=== PATIENT | male | born 1975 | race African-American/Black ===

== ENCOUNTER 2019-08-22 09:00 | Inpatient (IN) ==
[2019-08-25] MEDS ORDERED: GLUCAGON 1 MG VIAL IM PRN (08:37)
[2019-08-25] MEDS ORDERED: DEXTROSE 50% 25 GM/50 ML VIAL IV PRN (08:37)
[2019-08-25] MEDS ORDERED: CLORAZEPATE 3.75 MG TABLET PO PRN (09:34)
[2019-08-25] MEDS ORDERED: hydrALAZINE 20 MG/1 ML VIAL IV PRN (09:36)
[2019-08-25 09:44] LABS: Basophils # 0.1 10*3/uL (0.0-0.2); Basophils % 1.5 % (0.0-0.8); Eosinophils # 0.3 10*3/uL (0.0-0.87); Eosinophils % 4.5 % (0.00-10.9); Hematocrit 48.6 VOL% (42.0-52.0); Hemoglobin 16.6 GM/DL (14.0-18.0); Immature Granulocytes % 0.1 %; Immature Granulocytes Absolute 0.01 #; Lymphocytes # 2.8 10*3/uL (1.4-4.0); Lymphocytes % 36.9 % (21.2-54.2); Mean Corpuscular HGB Conc 34.2 GM/DL (32-36); Mean Corpuscular Volume 94.6 FL (87-102); Mean Platelet Volume 9.9 FL (9.6-12.0); Monocytes % 11.4 % (1.7-12.7); Neutrophils % 45.6 % (38.7-73.9); Platelet Count 201 T/CUMM (130-400); Red Blood Count 5.14 MC/CUMM (3.8-5.5); Red Cell Distribution Width 13.5 % (9.3-17.3); White Blood Count 7.5 T/CUMM (4-12)
[2019-08-25 10:00] LABS: Albumin 3.7 G/DL (3.4-5.0); Bilirubin,Total 0.8 MG/DL (0.2-1.0); Calcium 8.9 MG/DL (8.5-10.1); Osmolality,Calculated 274.8 MOS/KG (273-304); Total Protein 7.7 G/DL (6.4-8.3)
[2019-08-25 10:01] LABS: ABG Base Excess -1.6 MMOL/L (-2.5-2.5); ABG HCO3 21.8 MMOL/L (20-26); ABG Oxygen Saturation 96.6 % (95-100); ABG PCO2 33.5 MM HG (35-48); ABG PH 7.431 (7.35-7.45); ABG PO2 84.9 MM HG (80-95); ABG TCO2 22.8 MMOL/L (23-27); Pt O2 Delivery Device Room Air
[2019-08-25] MEDS: CHLORHEXIDINE 0.12% ORAL RINSE 60 ML BOTTLE SWISH/SPIT SCH ×2 (14:38→21:12)
[2019-08-25] MEDS: CHLORHEXIDINE 4% SOLN 118 ML BOTTLE TOP SCH ×3 (15:18→21:11)
[2019-08-25] MEDS ORDERED: NICOTINE 21 MG/24 HR PATCH TRANSDERM ONE (16:45)
[2019-08-26] MEDS ORDERED: PAPAVERINE 60 MG/2 ML VIAL ONE (04:25)
[2019-08-26] MEDS ORDERED: VANCOMYCIN 500 MG VIAL ONE (04:25)
[2019-08-26] MEDS ORDERED: VANCOMYCIN 1,000 MG VIAL ONE (04:26)
[2019-08-26] MEDS ORDERED: ALBUTEROL/IPRATROPIUM 3 ML NEB RESP TX ONE (05:30)
[2019-08-26] MEDS: CHLORHEXIDINE 0.12% ORAL RINSE 60 ML BOTTLE SWISH/SPIT SCH ×2 (05:31→20:22)
[2019-08-26] MEDS ORDERED: MIDAZOLAM 10 MG/2 ML VIAL ONE (05:53)
[2019-08-26] MEDS ORDERED: SUFentanil 250 MCG/5 ML AMP ONE ×2 (05:53→10:28)
[2019-08-26] MEDS ORDERED: FAMOTIDINE 20 MG TABLET PO ONE (06:00)
[2019-08-26] MEDS ORDERED: LORazepam 1 MG TABLET PO ONE (06:00)
[2019-08-26] MEDS ORDERED: CEFUROXIME INJ 1,500 MG in SYRINGE 1 EACH IV ONE (07:00)
[2019-08-26 07:33] LABS: ABG Base Excess -1.6 MMOL/L (-2.5-2.5); ABG HCO3 21.7 MMOL/L (20-26); ABG Oxygen Saturation 98.4 % (95-100); ABG PCO2 33.1 MM HG (35-48); ABG PH 7.435 (7.35-7.45); ABG PO2 131.8 MM HG (80-95); ABG TCO2 22.7 MMOL/L (23-27); Glucose Heart Surgery 104 MG/DL (74-106); Hemoglobin Heart Surgery 15.5 G/DL (14.0-18.0); Ionized Calcium Arterial 1.16 MMOL/L (1.21-1.46); PCO2 Patient Temp Arterial 33.1 MMHG; PH Patient Temp Arterial 7.435; PO2 Patient Temp Arterial 131.8 MM HG; Patient Temperature 37 CELCIUS; Potassium Heart/CVR 3.6 MMOL/L (3.5-5.1); Sodium Heart/CVR 137 MMOL/L (135-145)
[2019-08-26] MEDS ORDERED: PHENYLEPHRINE DRIP 40 MG/250 ML PREMIX IV ONE (07:44)
[2019-08-26 07:56] LABS: Apearance,Urine CLEAR (Clear); Bacteria,Urine Occasional /HPF (Few); Bilirubin,Urine Negative (Negative); Blood, Urine Small mg/dL (Negative); Glucose,Urine (UA) Negative (Negative); Ketones,Urine Negative (Negative); Mucus,Urine Moderate /LPF (Occasional); Nitrite,Urine Negative (Negative); Protein,Urine Negative; RBC,Urine 1 /HPF (0-4); Urine Color Yellow (Yellow); Urine Specific Gravity 1.023 (1.001-1.035); Urine Urobilinogen < 2.0 EU/DL (0.2-1.0); WBC,Urine <1 /HPF (0-6)
[2019-08-26] MEDS ORDERED: HEPARIN/NACL 0.9% 2 UNITS/ML 500 ML IV ONE (09:07)
[2019-08-26] MEDS ORDERED: PHENYLEPHRINE DRIP 20 MG/250 ML PREMIX IV ONE (09:07)
[2019-08-26] MEDS ORDERED: NITROGLYCERIN DRIP 50 MG/250 ML BOTTLE IV ONE (09:07)
[2019-08-26] MEDS ORDERED: AMINOCAPROIC ACID 5,000 MG/20 ML VIAL ONE (09:08)
[2019-08-26 09:16] LABS: Hemoglobin Heart Surgery 11.2 G/DL (14.0-18.0); Potassium Heart/CVR 4.3 MMOL/L (3.5-5.1); VBG Base Excess -1.1 MEQ/L (0-4); VBG HCO3 22.9 MEQ/L (24-28); VBG Oxygen Saturation 87.2 %; VBG PCO2 35.4 MMHG (41-51); VBG PH 7.428; VBG PO2 52.2 MMHG (17-40)
[2019-08-26 09:17] LABS: PH Patient Temp Venous 7.473; PO2 Patient Temp Venous 42.3 MM HG
[2019-08-26 09:44] LABS: Hemoglobin Heart Surgery 11.7 G/DL (14.0-18.0); PCO2 Patient Temp Venous 33.3 MM HG; PH Patient Temp Venous 7.481; Potassium Heart/CVR 4.6 MMOL/L (3.5-5.1); VBG Base Excess 1.8 MEQ/L (0-4); VBG HCO3 25.8 MEQ/L (24-28); VBG Oxygen Saturation 89.4 %; VBG PCO2 40.4 MMHG (41-51); VBG PH 7.422; VBG PO2 55.1 MMHG (17-40)
[2019-08-26 10:20] LABS: Hematocrit Heart Surgery 37.4 PERCENT (42-52); Hemoglobin Heart Surgery 12.1 G/DL (14.0-18.0); PCO2 Patient Temp Venous 31.9 MM HG; PH Patient Temp Venous 7.478; PO2 Patient Temp Venous 38.4 MM HG; Potassium Heart/CVR 5.4 MMOL/L (3.5-5.1); VBG Base Excess 0.7 MEQ/L (0-4); VBG HCO3 24.8 MEQ/L (24-28); VBG PCO2 36.9 MMHG (41-51); VBG PH 7.434; VBG PO2 47.3 MMHG (17-40)
[2019-08-26 10:44] LABS: Hematocrit Heart Surgery 35.9 PERCENT (42-52); Hemoglobin Heart Surgery 11.7 G/DL (14.0-18.0); PCO2 Patient Temp Venous 39.8 MM HG; PH Patient Temp Venous 7.402; PO2 Patient Temp Venous 43.8 MM HG; Potassium Heart/CVR 5.1 MMOL/L (3.5-5.1); VBG Base Excess 0.1 MEQ/L (0-4); VBG HCO3 24.1 MEQ/L (24-28); VBG Oxygen Saturation 79.6 %; VBG PCO2 39.8 MMHG (41-51); VBG PH 7.402; VBG PO2 43.8 MMHG (17-40)
[2019-08-26] MEDS ORDERED: THROMBIN TOPICAL (RECOMBINANT) 5,000 UNIT VIAL TOP ONE (10:55)
[2019-08-26] MEDS ORDERED: ALBUTEROL 2.5 MG/3 ML NEB RESP TX ONE (11:01)
[2019-08-26 11:23] LABS: ABG Base Excess -1.4 MMOL/L (-2.5-2.5); ABG HCO3 23.3 MMOL/L (20-26); ABG Oxygen Saturation 99.3 % (95-100); ABG PCO2 37.9 MM HG (35-48); ABG PH 7.394 (7.35-7.45); ABG TCO2 20.5 MMOL/L (23-27); Glucose Heart Surgery 177 MG/DL (74-106); Hematocrit Heart Surgery 37.2 PERCENT (42-52); Hemoglobin Heart Surgery 12.1 G/DL (14.0-18.0); Ionized Calcium Arterial 1.25 MMOL/L (1.21-1.46); PCO2 Patient Temp Arterial 37.9 MMHG; PH Patient Temp Arterial 7.394; Patient Temperature 37 CELCIUS; Potassium Heart/CVR 3.8 MMOL/L (3.5-5.1); Sodium Heart/CVR 137 MMOL/L (135-145)
[2019-08-26] MEDS ORDERED: HEPARIN 10,000 UNIT/10 ML VIAL ONE ×2 (11:23→12:56)
[2019-08-26] MEDS ORDERED: MANNITOL 100 GM/500 ML BAG IV ONE (11:23)
[2019-08-26] MEDS ORDERED: DEXTROSE 5% KCL 20 MEQ 20 MEQ/1,000 ML BAG IV ONE (11:23)
[2019-08-26] MEDS ORDERED: ALBUMIN 5% 12.5 GM/250 ML VIAL IV ONE (11:23)
[2019-08-26] MEDS ORDERED: FUROSEMIDE 20 MG/2 ML VIAL ONE (11:23)
[2019-08-26] MEDS ORDERED: LIDOCAINE 2% 5 ML VIAL ONE ×2 (11:23→12:55)
[2019-08-26] MEDS ORDERED: ALBUMIN 25% 25 GM/100 ML VIAL IV ONE (11:23)
[2019-08-26] MEDS ORDERED: MAGNESIUM SULFATE 5 GM/10 ML VIAL IV ONE (11:23)
[2019-08-26] MEDS ORDERED: methylPREDNISolone SOD SUC 1,000 MG/8 ML VIAL ONE (11:23)
[2019-08-26] MEDS ORDERED: PROTAMINE SULFATE 250 MG/25 ML VIAL IV ONE (11:23)
[2019-08-26] MEDS ORDERED: SODIUM BICARBONATE 50 MEQ/50 ML VIAL IV ONE (11:23)
[2019-08-26] MEDS ORDERED: PROTAMINE SULFATE 50 MG/5 ML VIAL IV ONE (11:24)
[2019-08-26] MEDS ORDERED: MAGNESIUM SULF RIDER 4 GM in PREMIX 1 EACH IV PRN (12:11)
[2019-08-26] MEDS ORDERED: MAGNESIUM SULF RIDER 2 GM in PREMIX 1 EACH IV PRN (12:11)
[2019-08-26] MEDS ORDERED: ACETAMINOPHEN 650 MG SUPP RECTAL PRN (12:11)
[2019-08-26] MEDS ORDERED: DEXTROSE 10% 250 ML BAG IV PRN ×2 (12:11)
[2019-08-26] MEDS ORDERED: LACTATED RINGERS 250 ML IV PRN (12:11)
[2019-08-26] MEDS ORDERED: ONDANSETRON 4 MG/2 ML VIAL IV PRN (12:11)
[2019-08-26] MEDS ORDERED: INSULIN REGULAR 100 UNIT/ML IV PRN (12:11)
[2019-08-26] MEDS ORDERED: PHENYLEPHRINE DRIP 40 MG/250 ML PREMIX IV PRN (12:11)
[2019-08-26] MEDS ORDERED: CALCIUM CHLORIDE 1,000 MG/10 ML SYRINGE IV PRN (12:11)
[2019-08-26] MEDS ORDERED: CHLORHEXIDINE 4% SOLN 118 ML BOTTLE TOP PRN (12:11)
[2019-08-26] MEDS ORDERED: INSULIN REGULAR DRIP 100 ML IV SCH (12:11)
[2019-08-26] MEDS ORDERED: VECURONIUM 10 MG VIAL IV PRN ×2 (12:11)
[2019-08-26] MEDS ORDERED: MIDAZOLAM 10 MG/2 ML VIAL IV PRN (12:11)
[2019-08-26] MEDS ORDERED: MIDAZOLAM 2 MG/2 ML VIAL IV PRN (12:11)
[2019-08-26] MEDS ORDERED: NITROPRUSSIDE 100 MG in DEXTROSE 5% 250 ML IV PRN (12:11)
[2019-08-26] MEDS ORDERED: INSULIN REGULAR 100 UNIT/ML IV ONE (12:11)
[2019-08-26 12:45] LABS: ABG Base Excess -0.4 MMOL/L (-2.5-2.5); ABG HCO3 23.9 MMOL/L (20-26); ABG Oxygen Saturation 89.9 % (95-100); ABG PCO2 44.9 MM HG (35-48); ABG PO2 61.2 MM HG (80-95); ABG TCO2 22.3 MMOL/L (23-27); Glucose Heart Surgery 165 MG/DL (74-106); Hematocrit Heart Surgery 40.5 PERCENT (42-52); Hemoglobin Heart Surgery 13.2 G/DL (14.0-18.0); Potassium Heart/CVR 3.5 MMOL/L (3.5-5.1)
[2019-08-26 12:49] LABS: Basophils % 0.3 % (0.0-0.8); Eosinophils # 0.1 10*3/uL (0.0-0.87); Eosinophils % 0.7 % (0.00-10.9); Hematocrit 36.9 VOL% (42.0-52.0); Hemoglobin 12.9 GM/DL (14.0-18.0); Immature Granulocytes % 0.3 %; Immature Granulocytes Absolute 0.03 #; Lymphocytes # 1.5 10*3/uL (1.4-4.0); Lymphocytes % 16.3 % (21.2-54.2); Mean Corpuscular Volume 93.9 FL (87-102); Mean Platelet Volume 10.2 FL (9.6-12.0); Monocytes % 5.3 % (1.7-12.7); Neutrophils % 77.1 % (38.7-73.9); Platelet Count 126 T/CUMM (130-400); Red Blood Count 3.93 MC/CUMM (3.8-5.5); Red Cell Distribution Width 13.8 % (9.3-17.3)
[2019-08-26] MEDS: SODIUM CHLORIDE 0.45% 1,000 ML IV SCH ×2 (12:54)
[2019-08-26] MEDS: POTASSIUM CHLORIDE RIDER 20 MEQ in PREMIX 1 EACH IV PRN ×4 (12:55→23:36)
[2019-08-26] MEDS ORDERED: ETOMIDATE 40 MG/20 ML VIAL IV ONE (12:56)
[2019-08-26] MEDS ORDERED: CALCIUM CHLORIDE 1,000 MG/10 ML VIAL IV ONE (12:56)
[2019-08-26] MEDS ORDERED: VECURONIUM 10 MG VIAL IV ONE (12:56)
[2019-08-26] MEDS ORDERED: SODIUM CHLORIDE 0.9% 250 ML IV ONE (12:56)
[2019-08-26] MEDS ORDERED: LACTATED RINGERS 1,000 ML IV ONE (12:56)
[2019-08-26] MEDS ORDERED: MINERAL OIL/PETROLATUM OPH OINT 3.5 GM TUBE ONE (12:56)
[2019-08-26] MEDS ORDERED: SEVOFLURANE 1 UNIT/15 MINUTE INH ONE (12:56)
[2019-08-26] MEDS ORDERED: SODIUM CHLORIDE 0.9% 200 ML IV ONE (12:56)
[2019-08-26] MEDS ORDERED: SODIUM CHLORIDE 0.9% 1,000 ML IV ONE (12:56)
[2019-08-26 12:59] LABS: INR 1.1; PT Patient Result 11.8 SECS (9.6-12.2); Partial Thromboplastin Time 25.5 SECS (20.8-36.0)
[2019-08-26] MEDS: LACTATED RINGERS 1,000 ML IV PRN ×2 (13:00→14:01)
[2019-08-26 13:24] LABS: Albumin 3.1 G/DL (3.4-5.0); Calcium 8.1 MG/DL (8.5-10.1); Total Protein 5.9 G/DL (6.4-8.3)
[2019-08-26 13:25] LABS: Troponin I 7.29 NG/ML (0.00-0.045)
[2019-08-26] MEDS: POTASSIUM CHLORIDE RIDER 10 MEQ in PREMIX 1 EACH IV PRN ×2 (13:29→15:26)
[2019-08-26 14:34] LABS: ABG Base Excess -0.9 MMOL/L (-2.5-2.5); ABG HCO3 23.8 MMOL/L (20-26); ABG Oxygen Saturation 94.8 % (95-100); ABG PH 7.393 (7.35-7.45); ABG PO2 79.3 MM HG (80-95); ABG TCO2 25.1 MMOL/L (23-27); Glucose Heart Surgery 121 MG/DL (74-106); Hemoglobin Heart Surgery 13.2 G/DL (14.0-18.0); Potassium Heart/CVR 3.9 MMOL/L (3.5-5.1)
[2019-08-26 15:27] LABS: ABG Base Excess -0.7 MMOL/L (-2.5-2.5); ABG HCO3 23.8 MMOL/L (20-26); ABG Oxygen Saturation 95.9 % (95-100); ABG PCO2 40.9 MM HG (35-48); ABG PH 7.382 (7.35-7.45); ABG PO2 82.1 MM HG (80-95); ABG TCO2 21.4 MMOL/L (23-27); Glucose Heart Surgery 115 MG/DL (74-106); Hematocrit Heart Surgery 39.6 PERCENT (42-52); Hemoglobin Heart Surgery 12.9 G/DL (14.0-18.0); Potassium Heart/CVR 4.1 MMOL/L (3.5-5.1)
[2019-08-26] MEDS: ALBUMIN 5% 12.5 GM in PREMIX 1 EACH IV PRN ×2 (17:37→18:00)
[2019-08-26 18:47] LABS: ABG Base Excess -1.6 MMOL/L (-2.5-2.5); ABG Oxygen Saturation 95.1 % (95-100); ABG PH 7.405 (7.35-7.45); ABG PO2 74.5 MM HG (80-95); ABG TCO2 19.8 MMOL/L (23-27); Glucose Heart Surgery 164 MG/DL (74-106); Hematocrit Heart Surgery 39.3 PERCENT (42-52); Hemoglobin Heart Surgery 12.8 G/DL (14.0-18.0); Potassium Heart/CVR 4.3 MMOL/L (3.5-5.1)
[2019-08-26 20:09] LABS: ABG Base Excess -1.1 MMOL/L (-2.5-2.5); ABG HCO3 23.4 MMOL/L (20-26); ABG Oxygen Saturation 92.8 % (95-100); ABG PCO2 36.4 MM HG (35-48); ABG PO2 64.4 MM HG (80-95); ABG TCO2 20.4 MMOL/L (23-27); Glucose Heart Surgery 156 MG/DL (74-106); Hematocrit Heart Surgery 38.1 PERCENT (42-52); Hemoglobin Heart Surgery 12.4 G/DL (14.0-18.0); Potassium Heart/CVR 4.4 MMOL/L (3.5-5.1)
[2019-08-26] MEDS: CEFUROXIME INJ 1,500 MG in SYRINGE 1 EACH IV SCH (20:14)
[2019-08-26] MEDS: SODIUM CHLORIDE 0.9% 1,000 ML IV SCH (20:21)
[2019-08-26 21:15] LABS: ABG Base Excess -1.4 MMOL/L (-2.5-2.5); ABG HCO3 23.1 MMOL/L (20-26); ABG Oxygen Saturation 91.8 % (95-100); ABG PCO2 34.4 MM HG (35-48); ABG PH 7.421 (7.35-7.45); ABG PO2 60.8 MM HG (80-95); ABG TCO2 19.6 MMOL/L (23-27); Glucose Heart Surgery 166 MG/DL (74-106); Hematocrit Heart Surgery 39.3 PERCENT (42-52); Hemoglobin Heart Surgery 12.8 G/DL (14.0-18.0); Potassium Heart/CVR 4.1 MMOL/L (3.5-5.1)
[2019-08-26] MEDS ORDERED: FUROSEMIDE 40 MG/4 ML VIAL IV PRN (21:24)
[2019-08-26] MEDS: MORPHINE 4 MG/1 ML VIAL IV PRN (22:30)
[2019-08-26] MEDS: MORPHINE 10 MG/1 ML VIAL IV PRN (23:08)
[2019-08-26 23:17] LABS: ABG Base Excess -0.1 MMOL/L (-2.5-2.5); ABG HCO3 24.2 MMOL/L (20-26); ABG Oxygen Saturation 90.7 % (95-100); ABG PCO2 34.4 MM HG (35-48); ABG PH 7.441 (7.35-7.45); ABG PO2 57.2 MM HG (80-95); ABG TCO2 20.4 MMOL/L (23-27); Glucose Heart Surgery 162 MG/DL (74-106); Hematocrit Heart Surgery 40.3 PERCENT (42-52); Hemoglobin Heart Surgery 13.1 G/DL (14.0-18.0); Potassium Heart/CVR 4.2 MMOL/L (3.5-5.1)
[2019-08-26] MEDS: ALBUTEROL/IPRATROPIUM 3 ML NEB RESP TX SCH (23:31)
[2019-08-27] MEDS: MORPHINE 10 MG/1 ML VIAL IV PRN ×3 (02:13→07:39)
[2019-08-27] MEDS: ALBUTEROL/IPRATROPIUM 3 ML NEB RESP TX SCH ×6 (03:33→23:20)
[2019-08-27 04:00] LABS: ABG HCO3 25.2 MMOL/L (20-26); ABG Oxygen Saturation 89.5 % (95-100); ABG PH 7.445 (7.35-7.45); ABG PO2 54.7 MM HG (80-95); ABG TCO2 21.7 MMOL/L (23-27); Glucose Heart Surgery 146 MG/DL (74-106); Hematocrit Heart Surgery 39.1 PERCENT (42-52); Hemoglobin Heart Surgery 12.7 G/DL (14.0-18.0)
[2019-08-27 04:13] LABS: Basophils % 0.2 % (0.0-0.8); Eosinophils % 0.1 % (0.00-10.9); Hematocrit 36.2 VOL% (42.0-52.0); Hemoglobin 12.5 GM/DL (14.0-18.0); Immature Granulocytes % 0.5 %; Immature Granulocytes Absolute 0.08 #; Lymphocytes # 0.8 10*3/uL (1.4-4.0); Lymphocytes % 5.6 % (21.2-54.2); Mean Corpuscular HGB Conc 34.5 GM/DL (32-36); Mean Platelet Volume 10.1 FL (9.6-12.0); Monocytes % 7.2 % (1.7-12.7); Neutrophils % 86.4 % (38.7-73.9); Platelet Count 158 T/CUMM (130-400); Red Blood Count 3.81 MC/CUMM (3.8-5.5); Red Cell Distribution Width 14.3 % (9.3-17.3)
[2019-08-27] MEDS: POTASSIUM CHLORIDE RIDER 20 MEQ in PREMIX 1 EACH IV PRN (04:32)
[2019-08-27 04:41] LABS: Albumin 3.7 G/DL (3.4-5.0); Bilirubin,Direct 0.25 MG/DL (0.0-0.20); Bilirubin,Total 1.8 MG/DL (0.2-1.0); CKMB % 1.7 %; Calcium 8.4 MG/DL (8.5-10.1); Osmolality,Calculated 285.1 MOS/KG (273-304); Total Protein 6.1 G/DL (6.4-8.3)
[2019-08-27 04:55] LABS: Troponin I 10.7 NG/ML (0.00-0.045)
[2019-08-27] MEDS: CEFUROXIME INJ 1,500 MG in SYRINGE 1 EACH IV SCH ×2 (07:46→20:12)
[2019-08-27] MEDS: INSULIN REGULAR 100 UNIT/ML SUBCUT SCH ×5 (07:46→23:24)
[2019-08-27] MEDS: CHLORHEXIDINE 0.12% ORAL RINSE 60 ML BOTTLE SWISH/SPIT SCH ×2 (08:05→20:14)
[2019-08-27 13:11] LABS: CKMB % 1.1 %
[2019-08-27 13:12] LABS: Troponin I 7.1 NG/ML (0.00-0.045)
[2019-08-27] MEDS: SODIUM CHLORIDE 0.45% 1,000 ML IV SCH ×2 (14:08)
[2019-08-27] MEDS ORDERED: oxyCODONE/ACETAMINOPHEN 5-325 MG TABLET PO PRN (15:46)
[2019-08-27] MEDS: MORPHINE 4 MG/1 ML VIAL IV PRN (20:14)
[2019-08-27] MEDS: oxyCODONE/ACETAMINOPHEN 5-325 MG TABLET PO PRN (22:35)
[2019-08-28] MEDS: ALBUTEROL/IPRATROPIUM 3 ML NEB RESP TX SCH ×6 (03:20→23:19)
[2019-08-28] MEDS: SODIUM CHLORIDE 0.45% 1,000 ML IV SCH (03:57)
[2019-08-28 04:00] LABS: Basophils % 0.3 % (0.0-0.8); Eosinophils % 0.1 % (0.00-10.9); Hematocrit 34.3 VOL% (42.0-52.0); Hemoglobin 11.4 GM/DL (14.0-18.0); Immature Granulocytes % 0.5 %; Immature Granulocytes Absolute 0.08 #; Lymphocytes % 13.7 % (21.2-54.2); Mean Corpuscular HGB Conc 33.2 GM/DL (32-36); Mean Platelet Volume 10.2 FL (9.6-12.0); Monocytes % 8.7 % (1.7-12.7); Neutrophils % 76.7 % (38.7-73.9); Platelet Count 130 T/CUMM (130-400); Red Cell Distribution Width 14.6 % (9.3-17.3); White Blood Count 14.7 T/CUMM (4-12)
[2019-08-28] MEDS: INSULIN REGULAR 100 UNIT/ML SUBCUT SCH ×2 (04:07→07:44)
[2019-08-28 04:23] LABS: Albumin 3.1 G/DL (3.4-5.0); Bilirubin,Direct 0.23 MG/DL (0.0-0.20); Bilirubin,Total 0.8 MG/DL (0.2-1.0); Calcium 8.3 MG/DL (8.5-10.1); Osmolality,Calculated 280.4 MOS/KG (273-304); Total Protein 6.4 G/DL (6.4-8.3)
[2019-08-28] MEDS: oxyCODONE/ACETAMINOPHEN 5-325 MG TABLET PO PRN ×2 (04:54→21:37)
[2019-08-28] MEDS: POTASSIUM CHLORIDE RIDER 10 MEQ in PREMIX 1 EACH IV PRN (04:55)
[2019-08-28] MEDS: POTASSIUM CHLORIDE RIDER 20 MEQ in PREMIX 1 EACH IV PRN (05:28)
[2019-08-28] MEDS: CHLORHEXIDINE 0.12% ORAL RINSE 60 ML BOTTLE SWISH/SPIT SCH ×2 (08:21→21:38)
[2019-08-28] MEDS: ASPIRIN CHEW 81 MG TABLET PO SCH (08:21)
[2019-08-28] MEDS ORDERED: NICOTINE 21 MG/24 HR PATCH TRANSDERM ONE (09:08)
[2019-08-28] MEDS ORDERED: DEXTROSE 10% 25 GM/250 ML BAG IV PRN ×2 (10:42)
[2019-08-28] MEDS ORDERED: MAGNESIUM SULF RIDER 2 GM in PREMIX 1 EACH IV PRN (10:42)
[2019-08-28] MEDS ORDERED: MAGNESIUM HYDROXIDE SUSP 30 ML UDCUP PO PRN (10:42)
[2019-08-28] MEDS ORDERED: SODIUM CHLOR 0.45% KCL 20 MEQ 20 MEQ/1,000 ML BAG IV SCH (10:42)
[2019-08-28] MEDS ORDERED: MAGNESIUM SULF RIDER 4 GM in PREMIX 1 EACH IV PRN (10:42)
[2019-08-28] MEDS ORDERED: ONDANSETRON 4 MG/2 ML VIAL IV PRN (10:42)
[2019-08-28] MEDS ORDERED: GLUCAGON 1 MG VIAL IM PRN ×2 (10:42)
[2019-08-28] MEDS ORDERED: ACETAMINOPHEN 325 MG TABLET PO PRN (10:42)
[2019-08-28] MEDS ORDERED: ALUMINUM/MAGNES/SIMETH MAX STR 30 ML UDCUP PO PRN (10:42)
[2019-08-28] MEDS ORDERED: POTASSIUM CHLORIDE 20 MEQ TABLET PO PRN (10:42)
[2019-08-28] MEDS: KETOROLAC 30 MG/1 ML VIAL IV SCH ×3 (11:04→23:05)
[2019-08-28] MEDS: ROSUVASTATIN 20 MG TABLET PO SCH (21:36)
[2019-08-28] MEDS: ZALEPLON 5 MG CAPSULE PO PRN (21:36)
[2019-08-28] MEDS: CLORAZEPATE 3.75 MG TABLET PO PRN (21:36)
[2019-08-29] MEDS: ALBUTEROL/IPRATROPIUM 3 ML NEB RESP TX SCH ×6 (03:37→23:25)
[2019-08-29] MEDS ORDERED: FUROSEMIDE 40 MG/4 ML VIAL IV ONE (06:00)
[2019-08-29] MEDS: KETOROLAC 30 MG/1 ML VIAL IV SCH ×4 (06:07→23:59)
[2019-08-29 06:40] LABS: Basophils % 0.4 % (0.0-0.8); Eosinophils # 0.1 10*3/uL (0.0-0.87); Eosinophils % 0.6 % (0.00-10.9); Hematocrit 34.1 VOL% (42.0-52.0); Hemoglobin 11.2 GM/DL (14.0-18.0); Immature Granulocytes % 0.6 %; Immature Granulocytes Absolute 0.06 #; Lymphocytes # 2.2 10*3/uL (1.4-4.0); Lymphocytes % 20.1 % (21.2-54.2); Mean Corpuscular HGB Conc 32.8 GM/DL (32-36); Mean Corpuscular Volume 98.8 FL (87-102); Mean Platelet Volume 10.3 FL (9.6-12.0); Monocytes % 9.2 % (1.7-12.7); Neutrophils % 69.1 % (38.7-73.9); Platelet Count 131 T/CUMM (130-400); Red Blood Count 3.45 MC/CUMM (3.8-5.5); Red Cell Distribution Width 13.7 % (9.3-17.3); White Blood Count 10.9 T/CUMM (4-12)
[2019-08-29 07:02] LABS: Alanine Aminotransferase 29 U/L (16-61); Albumin 2.9 G/DL (3.4-5.0); Alkaline Phosphatase 27 U/L (45-117); Aspartate Amino Transferase 28 U/L (0-37); Bilirubin,Indirect 0.8 MG/DL (0.0-1.0); Blood Urea Nitrogen 18 MG/DL (7-18); Calcium 8.6 MG/DL (8.5-10.1); Estimated Glom Filtration Rate 104 ML/MIN; Glucose 102 MG/DL (74-106); Osmolality,Calculated 278.5 MOS/KG (273-304); Total Protein 6.5 G/DL (6.4-8.3)
[2019-08-29] MEDS: METOPROLOL SUCCINATE XL 25 MG TABLET PO SCH (09:37)
[2019-08-29] MEDS: FERROUS SULFATE 325 MG TABLET PO SCH (09:38)
[2019-08-29] MEDS: DOCUSATE SODIUM 100 MG CAPSULE PO SCH (09:38)
[2019-08-29] MEDS: amLODIPine 10 MG TABLET PO SCH (09:39)
[2019-08-29] MEDS: PANTOPRAZOLE 40 MG TABLET PO SCH (09:39)
[2019-08-29] MEDS: ASPIRIN CHEW 81 MG TABLET PO SCH (09:39)
[2019-08-29] MEDS: ROSUVASTATIN 20 MG TABLET PO SCH (09:39)
[2019-08-29] MEDS: CHLORHEXIDINE 0.12% ORAL RINSE 60 ML BOTTLE SWISH/SPIT SCH ×2 (09:42→20:59)
[2019-08-29] MEDS: oxyCODONE/ACETAMINOPHEN 5-325 MG TABLET PO PRN (20:59)
[2019-08-29] MEDS: CLORAZEPATE 3.75 MG TABLET PO PRN (20:59)
[2019-08-29] MEDS: ZALEPLON 5 MG CAPSULE PO PRN (20:59)
[2019-08-30] MEDS: ALBUTEROL/IPRATROPIUM 3 ML NEB RESP TX SCH ×5 (03:23→19:26)
[2019-08-30] MEDS: KETOROLAC 30 MG/1 ML VIAL IV SCH (05:11)
[2019-08-30 05:49] LABS: Basophils # 0.1 10*3/uL (0.0-0.2); Basophils % 0.6 % (0.0-0.8); Eosinophils # 0.1 10*3/uL (0.0-0.87); Eosinophils % 1.5 % (0.00-10.9); Hematocrit 36.7 VOL% (42.0-52.0); Hemoglobin 12.5 GM/DL (14.0-18.0); Immature Granulocytes % 0.3 %; Immature Granulocytes Absolute 0.03 #; Lymphocytes % 23.3 % (21.2-54.2); Mean Corpuscular HGB Conc 34.1 GM/DL (32-36); Mean Corpuscular Volume 96.8 FL (87-102); Mean Platelet Volume 10.5 FL (9.6-12.0); Neutrophils % 64.3 % (38.7-73.9); Platelet Count 170 T/CUMM (130-400); Red Blood Count 3.79 MC/CUMM (3.8-5.5); Red Cell Distribution Width 13.4 % (9.3-17.3); White Blood Count 8.7 T/CUMM (4-12)
[2019-08-30 06:21] LABS: Alanine Aminotransferase 110 U/L (16-61); Albumin 3.1 G/DL (3.4-5.0); Alkaline Phosphatase 38 U/L (45-117); Aspartate Amino Transferase 68 U/L (0-37); Bilirubin,Indirect 0.8 MG/DL (0.0-1.0); Blood Urea Nitrogen 25 MG/DL (7-18); Calcium 8.6 MG/DL (8.5-10.1); Estimated Glom Filtration Rate 83 ML/MIN; Glucose 119 MG/DL (74-106); Osmolality,Calculated 279.7 MOS/KG (273-304); Total Protein 7.2 G/DL (6.4-8.3)
[2019-08-30] MEDS: ROSUVASTATIN 20 MG TABLET PO SCH (09:43)
[2019-08-30] MEDS: FOLIC ACID 1 MG TABLET PO SCH (09:43)
[2019-08-30] MEDS: FERROUS SULFATE 325 MG TABLET PO SCH (09:43)
[2019-08-30] MEDS: METOPROLOL SUCCINATE XL 25 MG TABLET PO SCH (09:43)
[2019-08-30] MEDS: DOCUSATE SODIUM 100 MG CAPSULE PO SCH (09:43)
[2019-08-30] MEDS: amLODIPine 10 MG TABLET PO SCH (09:43)
[2019-08-30] MEDS: ASPIRIN CHEW 81 MG TABLET PO SCH (09:43)
[2019-08-30] MEDS: PANTOPRAZOLE 40 MG TABLET PO SCH (09:43)
[2019-08-30] MEDS: THIAMINE 100 MG TABLET PO SCH (09:44)
[2019-08-30] MEDS: CHLORHEXIDINE 0.12% ORAL RINSE 60 ML BOTTLE SWISH/SPIT SCH ×2 (09:46→21:08)
[2019-08-31] MEDS: ALBUTEROL/IPRATROPIUM 3 ML NEB RESP TX SCH ×7 (00:25→23:04)
[2019-08-31] MEDS: METOPROLOL SUCCINATE XL 25 MG TABLET PO SCH (09:25)
[2019-08-31] MEDS: amLODIPine 10 MG TABLET PO SCH (09:25)
[2019-08-31] MEDS: FERROUS SULFATE 325 MG TABLET PO SCH (09:25)
[2019-08-31] MEDS: ROSUVASTATIN 20 MG TABLET PO SCH (09:25)
[2019-08-31] MEDS: FOLIC ACID 1 MG TABLET PO SCH (09:25)
[2019-08-31] MEDS: DOCUSATE SODIUM 100 MG CAPSULE PO SCH (09:25)
[2019-08-31] MEDS: ASPIRIN CHEW 81 MG TABLET PO SCH (09:25)
[2019-08-31] MEDS: THIAMINE 100 MG TABLET PO SCH (09:25)
[2019-08-31] MEDS: CHLORHEXIDINE 0.12% ORAL RINSE 60 ML BOTTLE SWISH/SPIT SCH ×2 (09:26→21:12)
[2019-08-31] MEDS: PANTOPRAZOLE 40 MG TABLET PO SCH (09:26)
[2019-09-01] MEDS: ALBUTEROL/IPRATROPIUM 3 ML NEB RESP TX SCH ×4 (02:42→14:30)
[2019-09-01 04:24] LABS: Basophils # 0.1 10*3/uL (0.0-0.2); Basophils % 0.9 % (0.0-0.8); Eosinophils # 0.3 10*3/uL (0.0-0.87); Eosinophils % 2.6 % (0.00-10.9); Hemoglobin 12.6 GM/DL (14.0-18.0); Immature Granulocytes % 0.6 %; Immature Granulocytes Absolute 0.06 #; Lymphocytes # 2.6 10*3/uL (1.4-4.0); Lymphocytes % 26.7 % (21.2-54.2); Mean Corpuscular HGB Conc 34.1 GM/DL (32-36); Mean Corpuscular Volume 96.1 FL (87-102); Monocytes % 10.4 % (1.7-12.7); Neutrophils % 58.8 % (38.7-73.9); Platelet Count 227 T/CUMM (130-400); Red Blood Count 3.85 MC/CUMM (3.8-5.5); Red Cell Distribution Width 13.5 % (9.3-17.3); White Blood Count 9.6 T/CUMM (4-12)
[2019-09-01 04:45] LABS: Alanine Aminotransferase 276 U/L (16-61); Albumin 3.2 G/DL (3.4-5.0); Alkaline Phosphatase 48 U/L (45-117); Aspartate Amino Transferase 93 U/L (0-37); Bilirubin,Indirect 0.7 MG/DL (0.0-1.0); Blood Urea Nitrogen 19 MG/DL (7-18); Estimated Glom Filtration Rate 90 ML/MIN; Glucose 97 MG/DL (74-106); Osmolality,Calculated 280.4 MOS/KG (273-304)
[2019-09-01 08:24] VITALS: BP 118/75
[2019-09-01] MEDS: CHLORHEXIDINE 0.12% ORAL RINSE 60 ML BOTTLE SWISH/SPIT SCH (09:09)
[2019-09-01] MEDS: ASPIRIN CHEW 81 MG TABLET PO SCH (09:10)
[2019-09-01] MEDS: DOCUSATE SODIUM 100 MG CAPSULE PO SCH (09:10)
[2019-09-01] MEDS: amLODIPine 10 MG TABLET PO SCH (09:10)
[2019-09-01] MEDS: ROSUVASTATIN 20 MG TABLET PO SCH (09:10)
[2019-09-01] MEDS: FOLIC ACID 1 MG TABLET PO SCH (09:10)
[2019-09-01] MEDS: FERROUS SULFATE 325 MG TABLET PO SCH (09:10)
[2019-09-01] MEDS: METOPROLOL SUCCINATE XL 25 MG TABLET PO SCH (09:10)
[2019-09-01] MEDS: THIAMINE 100 MG TABLET PO SCH (09:10)
[2019-09-01] MEDS: PANTOPRAZOLE 40 MG TABLET PO SCH (09:10)
[2019-09-01] MEDS: oxyCODONE/ACETAMINOPHEN 5-325 MG TABLET PO PRN (12:35)
== END 2019-09-01 15:13 | disposition home health service (06) | DRG 236 ==
LOC: N.TELEN 08-25 08:21 → N.CVR 08-26 11:44 → N.ICU 08-27 08:32 → N.TELES 08-28 10:41